=== PATIENT | female | born 1955 | race Caucasian/White ===

== ENCOUNTER → 2016-12-30 | Outpatient (CLI) | payer BC | LOC: RAD 14:58 | DX: R05 Cough (principal); R50.9 Fever, unspecified | CPT/HCPCS: 71020 ==

== ENCOUNTER → 2020-10-23 | Outpatient (CLI) | payer OTHER, SELFPAY ==
[~2020-10-23] MED LIST: MACROBID 100 M100 MG PO; NORCO 7.5-3251 EACH PO; TORADOL 10 MG T10 MG PO; ZOFRAN4 MG PO
== END ==
LOC: HEART 5 11:06
DX: R07.9 Chest pain, unspecified (principal)

== ENCOUNTER 2021-12-06 13:21 | Emergency (ER) | payer MEDICARE ==
[2021-12-06 13:40] LABS: HEMOGLOBIN 15.3 gm/dl (12.3-15.3); RED BLOOD COUNT 5.14 M/UL (4.00-5.10); WHITE BLOOD COUNT 6.7 K/UL (4.5-11.0)
[2021-12-06 14:07] LABS: BUN/CREATININE RATIO 18 (0-10)
== END 2021-12-06 16:34 | disposition home or self-care (01) ==
LOC: ER1 13:21
PROVIDERS: Emergency Medicine
DX: R07.89 Other chest pain (principal)
CPT/HCPCS: 71045; 80053; 82550; 82553; 84484; 85025; 93005; 99285

== ENCOUNTER → 2021-12-09 | Outpatient (CLI) | payer MEDICARE | LOC: HEART 5 13:52 | DX: R07.89 Other chest pain (principal) ==